=== PATIENT | female | born 2000 ===

== ENCOUNTER 2021-02-19 08:21 | Emergency (ER) | payer MEDICAID ==
[~2021-02-19] VITALS: Ht 165.1 cm; Wt 104.3 kg
[2021-02-19 08:28] VITALS: BP 120/80
[2021-02-19] MEDS ORDERED: AZIT1POW12 PO (08:43)
[2021-02-19] MEDS ORDERED: PRED20TA2 PO (08:43)
[2021-02-19] MEDS ORDERED: ACET30TA15 PO (08:43)
[2021-02-19 09:25] LABS: Urine Bacteria NONE SEEN /hpf (None Seen); Urine Blood Negative /uL (Negative); Urine Specific Gravity 1.024 (1.001-1.035); Urine WBC 10 /hpf (0 - 5)
== END 2021-02-19 10:54 | disposition home or self-care (01) ==
LOC: ER 08:21
DX: J02.9 Acute pharyngitis, unspecified (principal); Z20.822 Contact with and (suspected) exposure to COVID-19
CPT/HCPCS: 36415; 71046; 81001; 81025; 87426

== ENCOUNTER 2023-01-28 11:37 | Emergency (ER) | payer MEDICAID, OTHER ==
[~2023-01-28] VITALS: Ht 165.1 cm; Wt 126.4 kg
[~2023-01-28 11:37] MED LIST: ACET30TA15 PO; AZIT1POW12 PO; PRED20TA2 PO
[2023-01-28] MEDS ORDERED: TETANUS-DIPTH-ACEL PERTUSSIS 0.5ML SYR Tdap IM ONE (13:15)
[2023-01-28 13:20] VITALS: BP 118/83; PULSE 89; RESP 18; O2SAT 98
[2023-01-28 13:42] LABS: Hepatitis B Surface Antigen Negative (Negative)
[2023-01-28 13:43] LABS: Hepatitis B Surface Antibody Positive (Negative)
== END 2023-01-28 13:34 | disposition home or self-care (01) ==
LOC: ER 11:37
DX: S61.230A Puncture wound without foreign body of right index finger without damage to nail, initial encounter (principal); Z20.5 Contact with and (suspected) exposure to viral hepatitis; W46.0XXA Contact with hypodermic needle, initial encounter; Y93.89 Activity, other specified; Y92.89 Other specified places as the place of occurrence of the external cause; Y99.8 Other external cause status
CPT/HCPCS: 36415; 86703; 86706; 86803; 87340; 90471; 90715